=== PATIENT | male | born 1990 | race Caucasian/White ===

== ENCOUNTER 2019-01-23 10:31 | Emergency (ER) | payer OTHER ==
[~2019-01-23] VITALS: Ht 167.6 cm; Wt 74.4 kg
== END 2019-01-23 12:50 | disposition home or self-care (01) ==
LOC: ER 10:31
DX: L71.8 Other rosacea (principal)

== ENCOUNTER 2021-09-16 09:50 | Emergency (ER) | payer OTHER ==
[~2021-09-16] VITALS: Ht 167.6 cm; Wt 72.6 kg
[2021-09-16] MEDS ORDERED: KETO10TA2 PO (14:00)
[2021-09-16] MEDS ORDERED: NORFLEX100MG PO (14:00)
== END 2021-09-16 14:02 | disposition home or self-care (01) ==
LOC: ER 09:50
DX: S49.82XA Other specified injuries of left shoulder and upper arm, initial encounter (principal); X58.XXXA Exposure to other specified factors, initial encounter; Y93.89 Activity, other specified; Y92.9 Unspecified place or not applicable; Y99.1 Military activity; M54.50 Low back pain, unspecified

== ENCOUNTER 2021-09-16 14:49 | Outpatient (CLI) | payer OTHER ==
[~2021-09-16 14:49] MED LIST: KETO10TA2 PO; NORFLEX100MG PO
== END 2021-09-16 14:58 | disposition home or self-care (01) ==
LOC: MRI 14:49
PROVIDERS: ATTEND General Practice
DX: M54.9 Dorsalgia, unspecified (principal)
CPT/HCPCS: 72148